=== PATIENT | female | born 1995 | race Caucasian/White ===

== ENCOUNTER 2023-09-13 10:26 | Inpatient (IN) | payer MEDICAID, SELFPAY ==
[2023-09-13] VITALS (30 sets, daily range): BP systolic 101–135; BP diastolic 55–85; PULSE 70–87; RESP 16–22; TEMP 36.6–37.2; O2SAT 98–100; BMI 31.5
[2023-09-13] MEDS: LACTATED RINGERS 1000 ML 1,000 ML IV (10:50)
[2023-09-13 10:57] LABS: Basophils Absolute Auto 0.01 K/uL (0.00-0.30); Basophils Percent Auto 0.1 % (0.0-3.0); Eosinophils Absolute Auto 0.04 K/uL (0.00-0.50); Eosinophils Percent Auto 0.5 % (0.0-7.0); Hematocrit 37.6 % (33.0-51.0); Hemoglobin* 12.8 gm/dL (12.0-16.0); Immature Granulocytes Abs Auto 0.09 K/uL (0.00-0.30); Immature Granulocytes Pct Auto 1.2 %; Lymphocytes Percent Auto 14.6 % (20-44); Mean Corpuscular HGB Conc 34 gm/dL (32-36); Mean Corpuscular Hemoglobin 33 pg (26-34); Mean Corpuscular Volume 97 fL (80-100); Monocytes Percent Auto 6.2 % (0.0-11.0); Neutrophils Percent Auto 77.4 % (42.0-72.0); Platelet Count* 224 K/uL (140-440); RDW Coefficient of Variation % 13.1 % (11.5-15.5); Red Blood Count 3.89 m/uL (4.00-5.20); White Blood Count* 7.73 K/uL (4.50-11.00)
[2023-09-13 11:00] LABS: Slide Review Reflex No
--- NOTE | 2023-09-13 12:40 | P.LDBA_ITS ---
Subjective History of Present Illness Date Seen: 09/13/23 Narrative: Patient is being admitted to Labor and Delivery for repeat delivery, she is an [facility] patient. She is a 28 year old at 39 1/7 weeks gestation. Her full history and physical was dictated by on []. Please see this for details. Comments: care labs: 1st trimester labs performed February 2023: Blood type and group O positive, antibody screen negative, hemoglobin 14.5, platelets [id number], rubella immune, RPR nonreactive, hepatitis-B surface antigen nonreactive, HIV nonreactive, gonorrhea chlamydia testing negative, hepatitis-C nonreactive. Cell free DNA testing: Low risk and female. Twenty week labs: 06/27/2023: Hemoglobin 12.1, 1 hour GTT 122 Ultrasounds: 05/08/2023: Anterior placenta, not previa, single deepest pocket of amniotic fluid 4.7 cm. Cervix is closed and measures 4.5 cm. Average gestational age 21 weeks 0 days with GABE: 09/18/2023. EFW: 390 g which lies at the 51st percentile. Incomplete visualization of the cord insertion site, otherwise normal anatomy. 06/21/2023: EFW: 74th percentile. Normal cord insertion. First-trimester ultrasound not available for my review at the time of this a ppointment: On 03/05/2023, primary care provider message patient that her ultrasound results were normal in gestational age of lines with her LMP. 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 Past medical history: History of hepatitis a, migraines, IBS? UTI Up-to-date with vaccines. 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 Repeat low transverse section, with Pfannenstiel skin incision. 2. [facility] does NOT accept blood transfusions, normal starting hemoglobin and platelets. Will give TXA after cord clamp. OB Result Labs Labs: 09/13/23 HGB: 12.8 PLT: 224 OB Exam Physical Exam Vital signs: Temp Pulse BP Pulse Ox 98 F 82 117/66 98 09/13/23 10:45 09/13/23 10:38 09/13/23 10:38 09/13/23 11:08 Detailed Labor and Delivery Exam Patient Gravid: Yes Tachysystole: No Contraction intensity: Mild Fetus (Single) Heart Rate Baseline: 120 Monitor Accelerations: Present Monitor Decelerations: None Snf Variability: Moderate (6-25)
[2023-09-13] MEDS: CEFAZOLIN 2 GM INJ IVP (12:50)
[2023-09-13] MEDS: LACTATED RINGERS 1000 ML 1,000 ML 100 ML IV ×2 (12:55→13:40)
[2023-09-13] MEDS: TRANEXAMIC ACID 100 MG/ML INJ 1000 MG IV (13:05)
[2023-09-13] MEDS: miSOPROStoL 800 MCG/4 TABLET PR (13:31)
--- NOTE | 2023-09-13 14:30 | W.ANESCHARGE ---
Anesthesia Charges Start Date/Time Anesthesia Start Date: 09/13/23 Anesthesia Start Time: 12:38 Stop Date/Time Anesthesia Stop Date: 09/13/23 Anesthesia Stop Time: 14:27
--- NOTE | 2023-09-13 14:35 | W.PM.NB ---
Nerve Block Nerve Block Time Seen by Provider: 14:15 Date Seen: 09/13/23 Type of block requested by surgeon for post-operative analgesia: TAP Side: bilateral Time out performed: Yes Verification of patient name: Yes Verification of date of : Yes Site marking: site marked Name of person performing procedure: Scotty Continuous monitoring Was continuous monitoring of O2 sat, B/P, secured entrance monitor, recorded every 15 minutes?: Yes Procedure Checklist: sterile prep, needles and gloves Ultrasound guided. Images saved: Yes Medications given in 5ml increments after negative aspiration: Marcaine %: 0.25 mL: 30 Needle gauge: 20 and Exparel mL: 10 Patient tolerated procedure well: Yes Additional comments: Needle noted between internal oblique and transversus abdominus. Local spread visualized Block Charges Block Charge (with Pro Fee): TAP Bilateral Use of Ultrasound Machine for Block: Yes- US Guidance/pain block
--- NOTE | 2023-09-13 14:35 | W.ANESCHARGE ---
Anesthesia Charges Start Date/Time Anesthesia Start Date: 09/13/23 Anesthesia Start Time: 12:38 Stop Date/Time Anesthesia Stop Date: 09/13/23 Anesthesia Stop Time: 14:27
--- NOTE | 2023-09-13 15:11 | P.OBPRC_ITS ---
Procedure Date of procedure: 09/13/23 Pre-op diagnosis: Previous section x1 desiring repeat Post-op diagnosis: same Procedure Done: only Will [facility] bill your pro fee for this procedure?: Yes Blood Loss Measurement Type: QBL (679mL) Bakri Used: No IV fluids (mL): 1,000 Urine Output (mL): 300 Urine Output Comment: Clear at end of procedure Surgeon: Zaira Mahan MD Anesthesia Type: Spinal Findings: FINDINGS: Live-born female , Vertex ROT presentation, Apgars 8 and 9 at 1 and 5 minutes respectively. weight 7 lb 14 oz. Grossly normal bilateral fallopian tubes and ovaries. Very thin lower uterine segment. I would recommend repeat section in the future at 38 weeks. Hysterotomy extension to the left corner of incision, anterior leave of the broad ligament. Posterior leave of broad ligament intact. Procedure Name: Repeat low transverse section Procedure Description: PROCEDURE: After obtaining informed consent, the patient was taken to the operating room where spinal anesthesia was obtained and found to be adequate. She was prepared and draped in the normal sterile fashion in the dorsal supine position with a leftward tilt. A Pfannenstiel skin incision was made with a scalpel about 2 cm above symphysis pubic bone, 12-14 cm in length. This incision was carried down to the underlying layer of fascia with the Bovie and scalpel. The fascia was incised in the midline and the incision extended laterally. The rectus muscles were then in the midline. The Jason O retractor was then placed into the incision. The lower uterine segment was then incised in a transverse fashion with the scalpel. Upon entry into the uterus, clear amniotic fluid was noted. The uterine incision was extended cephalo caudally with blunt finger fractionation. The 's head was delivered atraumatically, followed by the remainder of the 's body. The nose and mouth were suctioned with the bulb suction. The cord was doubly clamped and cut, and the infant was handed off the field to [facility] for evaluation. 1 gram of TXA was given at this time. The placenta was delivered spontaneously with umbilical cord traction and fundal massage. The uterus was cleared of all clots and debris. Bleeding left uterine clamped with ring forceps. Multiple figure of 8 taken with Vicryl 0 and hemostasis secured. The rest of the uterine incision was reapproximated in a running locking fashion with a 0 Vicryl suture. A 2nd layer of the same suture was used to imbricate in horizontal fashion. The left broad ligament extension was evaluated, there was mild bleeding noted coming from the vertex of hysterotomy and additional sutures of Chromic 2-0 performed to oversaw and support the previous line of sutures. At this time there was also a component of uterine atony identify and treated with 800mcg of rectal Cytotec, 1 dose of IM Methergine and Oxytocin 20 units were running as protocol. This did improved uterine tone and hemostasis was secured. The posterior leave of the broad ligament on this side was also treated with Katharine to further secure hemostasis. The gutters were inspected and cleared of blood clot. All instruments and retractors were removed. Peritoneum was re approximated with a running non locking Vicryl 3-0 suture. The subfascial tissues were carefully inspected and hemostasis assured. The fascia was reapproximated in a running fashion with a looped 0 Vicryl suture. The subcutaneous tissues were copiously irrigated, inspected and hemostasis secured. The subcutaneous fat layer was reapproximated with a running suture of 3-0 Vicryl. The skin was closed in a subcuticular fashion with 4-0 Monocryl. LiquiBand and dressing were applied. The patient tolerated the procedure well. Sponge, lap, needle, and instrument counts were reported as correct x2. The patient was taken to the recovery room, awake, and in stable condition. She did receive 2 grams of IV Ancef preoperatively. Complications: None Pathology: none sent Surgery Debrief Performed: Yes Condition: stable Disposition: floor Infant total score - 1 minute: 8 total score - 5 minute: 9
[2023-09-13] MEDS: LACTATED RINGERS 1000 ML 1,000 ML 125 ML IV (17:05)
[2023-09-13] MEDS: SODIUM CHLORIDE 0.9 % (FLUSH) 10 ML SYRINGE IVF ×2 (20:08→20:21)
[2023-09-13] MEDS: KETOROLAC 30 MG/ML inj IVP (20:09)
[2023-09-13] MEDS: diphenhydrAMINE 50 MG/ML inj 12.5 MG IVP ×2 (20:21→20:35)
[2023-09-14] VITALS (14 sets, daily range): BP systolic 105–114; BP diastolic 64–69; PULSE 70–98; RESP 16; TEMP 36.8–37.2; O2SAT 98
[2023-09-14] MEDS: KETOROLAC 30 MG/ML inj IVP ×4 (02:08→20:22)
[2023-09-14] MEDS: diphenhydrAMINE 50 MG/ML inj 12.5 MG IVP (02:17)
[2023-09-14 06:27] LABS: Hemoglobin* 11.8 gm/dL (12.0-16.0)
[2023-09-14] MEDS: FERROUS SULFATE 325 MG TABLET PO (08:12)
[2023-09-14] MEDS: DOCUSATE SODIUM 100 MG CAPSULE PO (08:12)
--- NOTE | 2023-09-14 08:19 | PM.OBPNVD1 ---
OB - PN:Subj Subjective Time Seen by Provider: 07:45 Date Seen: 09/14/23 Patient comments OB post-: no complaints, pain well controlled, tolerating diet and flatus present infant status: and doing well [place] feeding status: exclusively Narrative: Letitia feels well.? Her pain is well controlled with current medications.? She has no new complaints.? Urinary output is adequate and she is voiding without difficulty.? Has a good appetite, is tolerating a general diet, is passing flatus, and has not had a bowel movement.? Has scant amount of rubra lochia.? She is ambulating well.?She had questions about . OB - PN: Obj Exam Physical Exam: Vital signs: Temp Pulse Resp BP Pulse Ox O2 Del Method 98.3 F 70 16 105/66 98 Room Air 09/14/23 08:02 09/14/23 08:02 09/14/23 08:02 09/14/23 08:02 09/14/23 08:02 09/14/23 08:02 Narrative: GENERAL APPEARANCE:? normal affect, alert, no distress? MOOD:? appropriate? CHEST:? clear to auscultation and percussion? HEART:? regular rate and rhythm? ABDOMEN:? soft, non-tender the uterine fundus is U/2 and is appropriate for the stage of recovery.?Dressing in clean, dry and intact. EXTREMITIES:? normal and no edema? Urinary Catheter Management: Urethral: Cath placed during this visit: yes, but has since been removed by the nurse Reason for continuing: surgical procedure Insertion date: 09/13/23 Insertion time: 12:48 Removal date: 09/14/23 Removal time: 00:45 OB - PN: Obj Data Labs Labs: Laboratory Results - last 24 hr 09/13/23 09/14/23 10:47 06:10 WBC 7.73 RBC 3.89 L Hgb 12.8 11.8 L Hct 37.6 MCV 97 MCH 33 MCHC 34 RDW Coeff of Daniella 13.1 Plt Count 224 Neut % (Auto) 77.4 H Lymph % (Auto) 14.6 L Stafford % (Auto) 6.2 Eos % (Auto) 0.5 Baso % (Auto) 0.1 Neut # (Auto) 6.00 Lymph # (Auto) 1.10 Stafford # (Auto) 0.50 Eos # (Auto) 0.04 Baso # (Auto) 0.01 Abs Immat Gran (auto) 0.09 Imm/Tot Granulo (auto) 1.2 Blood Type O Positive Antibody Screen NEGATIVE OB - PN: A/P Delivery Plan day: 1 Plan: routine care Comments: Anticipate discharge home tomorrow or the following day per patient preference.
[2023-09-14] MEDS: OXYCODONE 5 MG TABLET PO (11:48)
[2023-09-14] MEDS: ACETAMINOPHEN 500 MG TABLET 1000 MG PO (11:49)
[2023-09-15 01:15] VITALS: BP 113/70; PULSE 82; RESP 16; TEMP 36.7; O2SAT 98
[2023-09-15] MEDS: IBUPROFEN 600 MG TABLET PO ×2 (04:55→14:23)
--- NOTE | 2023-09-15 09:29 | P.OBPN_ITS ---
OB - PN:Subj Subjective Time Seen by Provider: 09:25 Date Seen: 09/15/23 Narrative: Ms. Wilkins is a 28yo seen on POD2 from repeat . She had an uncomplicated delivery and course to present. 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 Letitia is feeling well today with no acute concerns. She notes her pain control is overall good, but she certainly has more pain when she is up and moving. She notes analgesic medications are helping. She is tolerating a diet without nausea/vomiting. Ambulates without dizziness or lightheadedness. Passing gas, no bowel movement yet. Void spontaneously without difficulty. Lochia is minimal. She is breast and formula feeding baby successfully. Given her ongoing pain, she would desire another night in the hospital. OB - PN: Obj Exam Physical Exam: Vital signs: Temp Pulse Resp BP Pulse Ox O2 Del Method 98.0 F 82 16 113/70 98 Room Air 09/15/23 01:15 09/15/23 01:15 09/15/23 01:15 09/15/23 01:15 09/15/23 01:15 09/15/23 01:15 Narrative: General: Alert and oriented, in no acute distress Abdomen: Soft and nondistended. Tenderness to palpation in the low abdomen, consistent with postoperative state. No rebound or guarding. Incision is intact and well approximated, no erythema or drainage. Extremities: No edema, calf erythema or tenderness. Urinary Catheter Management: Urethral: Cath placed during this visit: yes, but has since been removed by the nurse Reason for continuing: not indwelling catheter Insertion date: 09/13/23 Insertion time: 12:48 Removal date: 09/14/23 Removal time: 00:45 OB - PN: A/P Delivery Assessment and Plan (1) delivery delivered: Status: Acute (2) Encounter for care of lactating mother: Status: Acute Plan Letitia is a 28-year-old seen on postop day 2 from a repeat d brooke. Her postoperative course has been unremarkable. She does note some ongoing pain, greatest when she is ambulating or breast-feeding baby. We discussed analgesic regimen, which does provide significant improvement. Encouraged abdominal support band for pain with movement. Vital signs are within normal limits, benign abdominal exam. Medically, she is meeting all post appropriate postoperative milestones but she is certainly entitled to another other night in the hospital. Her preference would be to stay given ongoing pain and support here. Disposition: discharge to home tomorrow Plan day: 2 Plan: routine care
[2023-09-15 09:40] VITALS: BP 110/71; PULSE 78; RESP 16; TEMP 36.6; O2SAT 97
[2023-09-15] MEDS: DOCUSATE SODIUM 100 MG CAPSULE PO (09:43)
[2023-09-15] MEDS: FERROUS SULFATE 325 MG TABLET PO (09:43)
[2023-09-15] MEDS: ACETAMINOPHEN 500 MG TABLET 1000 MG PO ×2 (09:53→22:25)
[2023-09-15] MEDS: OXYCODONE 5 MG TABLET PO (09:53)
[2023-09-15 16:30] VITALS: BP 104/86; PULSE 85; RESP 12; O2SAT 98
[2023-09-16 00:34] VITALS: BP 115/73; PULSE 70; RESP 16; TEMP 36.6; O2SAT 98
--- NOTE | 2023-09-16 06:56 | PM.OBDSVD1 ---
DS: Providers Provider Time Seen by Provider: 06:56 Date Seen: 09/16/23 Date of admission: 09/13/23 10:26 Primary care physician: Meera Candelario DO Admitting Clinician: Melia Mahan MD Attending Physician on discharge: Jorge Luis Preciado MD Exam Narrative: Exam Narrative: General: Alert and oriented, in no acute distress Abdomen: Soft and nondistended. No tenderness to the upper abdomen, mild tenderness across the low abdomen consistent with postop state. No rebound or guarding. Incision is well approximated, no erythema, drainage or ecchymosis. Extremities: No calf edema, erythema or tenderness Const: Vital Signs, click to edit/add: Vital Signs - 24 hr 09/15/23 09:40 09/15/23 16:30 09/16/23 00:34 Temperature 97.9 F 97.9 F Pulse Rate [Pulse Oximeter] 78 85 70 Respiratory Rate 16 12 16 Blood Pressure [Ri ght Arm] 110/71 104/86 115/73 Pulse Oximetry 97 98 98 Oxygen Delivery Me thod Room Air Room Air Room Air OB - DS: Summary Hospital Course Hospital Course: The patient is a 28 year old G 2 P 2 at 39 weeks gestation that was admitted to the Center on 09/13/23 for scheduled repeat . She had an uncomplicated delivery. She delivered a viable female . She is breast and bottle feeding. the patient has done well. Letitia is feeling well this morning, no acute concerns. She notes her pain is well controlled, only exacerbated with movement at the area of her incision. She is tolerating p.o. intake without nausea or vomiting. Ambulates without difficulty. Voiding spontaneously, passing flatus, no bowel movement yet. Lochia is minimal. No lower extremity edema, erythema or pain. Peripartum Data Procedures: Procedures Operation Date: 09/13/23 12:45 Actual Procedure Side Surgeon p Repeat low transverse Section Not Applicable Melia Mahan MD [place] Infant Gender: Female Time Spent with Patient Time attestation: Total time spent providing and/or coordinating discharge services: Time spent: Less than 30 minutes Discharge Plan Discharge Disposition: Home, Self-Care Date of Admission: 09/13/23 10:26 Attending Provider on Discharge: Tamera Preciado Primary Care Provider: Meera Candelario Condition: Stable Anticipated Discharge Date/Time: 09/16/23 06:59 Discharge Medications: Continued PNV #[id number] acid-[id number] 30 mg iron-10 mg iron-1 mg capsule 1 cap PO DAILY Discharge Orders: Discharge Order (Routine); Ordered 09/16/23 Ordered By: Tamera Preciado Patient Education: OB /Breast Feeding Activity Level: No strenuous activity Discharge Diet: Regular Follow Up Appointments: Meera Candelario DO [Primary Care Provider] - Forms: [facility] Info Instructions
[2023-09-16 07:41] VITALS: BP 118/76; PULSE 74; RESP 16; TEMP 37; O2SAT 97
[2023-09-16] MEDS: IBUPROFEN 600 MG TABLET PO (07:57)
[2023-09-16] MEDS: DOCUSATE SODIUM 100 MG CAPSULE PO (07:57)
[2023-09-16] MEDS: FERROUS SULFATE 325 MG TABLET PO (07:57)
[2023-09-16] MEDS: ACETAMINOPHEN 500 MG TABLET 1000 MG PO (12:52)
== END 2023-09-16 13:58 | disposition home or self-care (01) | DRG 788 ==
PROVIDERS: Admitting Provider Obstetrics & Gynecology; PCP Family Medicine; Visit Provider Obstetrics & Gynecology
PROC: 10D00Z1 Extraction of Products of Conception, Low, Open Approach (ICD-10-PCS; CPT 59514; principal; 2023-09-13 12:30)
DX: O34.211 Maternal care for low transverse scar from previous cesarean delivery (principal); Z3A.39 39 weeks gestation of pregnancy; Z37.0 Single live birth; G89.18 Other acute postprocedural pain
CPT/HCPCS: 01961; 36415; 64488; 76942; 85018; 85025; 86850; 86900; 86901; T1013; A9270; C9290; J0665; J0690; J1200; J1885; J2210; J2274; J2405; J2590; J7120

== ENCOUNTER 2023-10-25 14:08 | Outpatient (CLI) | payer MEDICAID, SELFPAY | END 2023-10-25 14:09 | disposition home or self-care (01) | LOC: NFLDREF 14:09 | PROVIDERS: PCP Family Medicine; Visit Provider Obstetrics & Gynecology | DX: N89.8 Other specified noninflammatory disorders of vagina (principal); R30.0 Dysuria | CPT/HCPCS: 87086; 87186 ==

== ENCOUNTER 2024-01-16 19:41 | Emergency (ER) | payer MEDICAID, SELFPAY ==
--- NOTE | 2024-01-16 20:08 | ED_ITS ---
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 She says sometimes when she touches her left ear there has been some watery drainage. She has not had a fever. Her infant daughter has developed some the same symptoms over the past couple of days. She is breast-feeding. General health is good, she denies asthma, does not smoke. Related Data Home Medications ?Medication ?Instructions ?Recorded ?Confirmed vitamin#30 30 mg iron-10 1 cap PO DAILY 07/03/23 10/25/23 mg iron-folic acid 1 mg-omg3 capsule Previous Rx's ?Medication ?Instructions ?Recorded rfideqvx-binric-OL-thonzonm 3.3 1 applic Otic (ear-left) Q4H #10 mL 01/16/24 mg-3 mg-10 mg-0.5 mg/mL ear drops,susp (Cortisporin-TC) Allergies Allergy/AdvReac Type Severity Reaction Status Date / Time No Known Drug Allergies Allergy Verified 10/25/23 14:07 Review of Systems Status of ROS: Reports: 6 or more systems reviewed and unremarkable except as noted in History and below [facility] Medical History (Updated 01/16/24 @ 21:09 by Jared Myles RN) No significant past medical history Surgical History (Updated 01/16/24 @ 21:09 by Jared Myles RN) No significant past surgical history Social History What is your current living situation?: I presently have a place to live Problems where you live: no known problems In the past 12 months, utilities in danger of being shut off: no In past 12 months, lack of transportation kept you from medical appts, meetings, work, or getting things needed for daily living: no In the past 12 mos, have been you worried that your food would run out before you had money to buy more?: never true In the past 12 mos, the food you bought just didn't last and you didn't have money to buy more?: never true Smoking Status: Never smoker Second hand tobacco smoke exposure: No How often do you have a drink containing alcohol: never AUDIT-C Alcohol total score: 0 Non-prescribed substance use: denies use How often does anyone, including family, friends and others, physically hurt you : never How often does anyone, including family, friends and others, insult or talk down to you: never How often does anyone, including family, friends and others, threaten you with harm: never How often does anyone, including family, friends and others, scream or curse at you: never Little interest or pleasure in doing things: not at all Feeling down, depressed, or hopeless: not at all Exam Narrative: Exam Narrative: Vital signs as noted above. In general, an alert, well-appearing patient. Voice is normal. Head: Normocephalic, atraumatic. Eyes: Pupils are equal reactive. Extraocular movements are full. Conjunctivae are normal. ENT: Mucous membranes are moist. Tonsils are a little erythematous but no edema or exudate. No evidence of abscess. She has some mild redness of the external auditory canal on the left but there is no edema and I do not see any drainage at this time. TMs are normal bilaterally. Neck: Supple without lymphadenopathy. Heart: Regular rate and rhythm. No murmur or rub. Lungs: Clear bilaterally. No increased work of breathing, crackles or wheezes. Extremities: Well perfused. No edema. No calf tenderness. Pulses intact. Neurologic: Patient is alert and oriented to person and place. Speech is fluent. Face is symmetric. Moves all extremities equally. Affect: Normal. Skin: Warm and dry. Well perfused. Const: Documenting provider has reviewed patient's vital signs: yes Course Course ED Course: Overall exam is pretty benign. She does have a little erythema in the left ear canal and I can certainly put her on some ear drops for that. No evidence of otitis media, pneumonia, peritonsillar abscess or other acute bacterial infection at this time. Will do a viral swab to evaluate for possible COVID, RSV, influenza. Supportive care with ibuprofen and/or Tylenol. Viral swab is negative. I did give her some Cortisporin ear drops for may be mild developing otitis externa. Otherwise, return for worsening, primary care follow-up if not improving over the next 7-10 days. Vital Signs Vital signs: Initial Vital Signs Respiratory Effort Normal, Spontaneous, Non-Labored 01/16/24 20:05 Respiratory Depth Normal 01/16/24 20:05 Respiratory Pattern Normal 01/16/24 20:05 Vital Signs Temperature 97.6 F 01/16/24 20:09 Pulse Rate 92 01/16/24 20:09 Respiratory Rate 16 01/16/24 20:09 Blood Pressure 116/70 01/16/24 20:09 Pulse Oximetry 98 01/16/24 20:09 Oxygen Delivery Method Room Air 01/16/24 20:09 Temperature 98.0 F 01/16/24 21:11 Pulse Rate 84 01/16/24 21:11 Respiratory Rate 16 01/16/24 21:11 Blood Pressure 121/71 01/16/24 21:11 Pulse Oximetry 98 01/16/24 21:10 Oxygen Delivery Method Room Air 01/16/24 21:10 Medical Decision Making Lab Data Labs: Lab Results 01/16/24 Range/Units 19:50 SARS-CoV-2 (PCR) Negative SARS-CoV-2 (Negative) Influenza Type A (PCR) Negative PCR FLU A (Negative) Influenza Type B (PCR) Negative PCR FLU B (Negative) RSV (PCR) Negative PCR RSV (Negative) Discharge Plan Discharge Clinical Impression: Viral illness, Otitis externa Patient Disposition: Home, Self-Care Condition: Stable Instructions: Swimmer's Ear (ED), Viral Syndrome (ED) Additional Instructions: Ear drops as prescribed. Ibuprofen and/or Tylenol as needed. See your primary doctor if not gradually improving over the next 7-10 days. Return to the emergency department at any time for acute worsening such as high fevers, diffi culty breathing, etc.. Prescriptions: New Cortisporin-TC 3.3-3-10-0.5 mg/mL drops,suspension 1 applic Otic (ear-left) Q4H Qty: 10 0RF Rx Instructions: apply to (cotton) wick; replace wick every 24 hours No Action PNV #[id number] acid-omega3 30 mg iron-10 mg iron-1 mg capsule 1 cap PO DAILY Follow Up/Referrals: Meera Candelario DO [Primary Care Provider] - Stand Alone Forms: [facility] Info Instructions
[2024-01-16 20:09] VITALS: BP 116/70; PULSE 92; RESP 16; TEMP 36.4; O2SAT 98
[2024-01-16 20:52] LABS: PCR FLU A Negative PCR FLU A (Negative); PCR FLU B Negative PCR FLU B (Negative); PCR RSV Negative PCR RSV (Negative); SARS PCR* Negative SARS-CoV-2 (Negative)
[2024-01-16 21:10] VITALS: BP 121/71; PULSE 84; RESP 16; TEMP 36.7; O2SAT 98
[2024-01-16 21:11] VITALS: BP 121/71; PULSE 84; RESP 16; TEMP 36.7
== END 2024-01-16 21:11 | disposition home or self-care (01) ==
LOC: ED 20:28
PROVIDERS: Emergency Provider Emergency Medicine; PCP Family Medicine
DX: H60.92 Unspecified otitis externa, left ear (principal); B34.9 Viral infection, unspecified
CPT/HCPCS: 87631; 99283

== ENCOUNTER 2024-02-19 18:06 | Emergency (ER) | payer MEDICAID, SELFPAY ==
[2024-02-19 18:13] VITALS: BP 113/73; PULSE 81; RESP 16; TEMP 36.3; O2SAT 97; BMI 26.9
--- NOTE | 2024-02-19 18:32 | ED.GENADULT ---
HPI - General Adult General Chief complaint: Urogenital Problems, Female Stated complaint: Pain while urinating Time Seen by Provider: 02/19/24 18:26 History of Present Illness HPI narrative: 15 days ago wisdom teeth removed. now having blood with bm. c/o constipation. c/o back and abd pain. constantly urinating. kendall and hurts to urinate. drinking oat milk and stool softener but if stops burning sensation comes back. symptoms x 7 days 28-year-old woman presenting to emergency department with a few concerns. Two weeks ago did have her wisdom teeth removed in still having some pain but admittedly is controlled with ibuprofen. She has only taken ibuprofen. She does have what sounds like an opiate available from last but she has not taken it in this last couple of weeks. Has however become constipated. Has been having increasing hard stool last bowel movement being yesterday and the day before that. Has had blood with last couple of bowel movements. Does not hurt independent of these bowel movements. She wonders if there might be a cream that needs to be used. Does not typically struggle with constipation; last recalled was with last . Recalls taking what sounds like Colace at that time. She has also been experiencing dysuria. No unusual vaginal discharge. No fever. No hematuria. Has had some bilateral low back ache. Related Data Previous Rx's ?Medication ?Instructions ?Recorded lidocaine 4 % topical cream 1 applic topical TID PRN pain 02/19/24 #14.17 grams polyethylene glycol 3350 17 17 g PO .daily - tid PRN #238 grams 02/19/24 gram/dose oral powder (Miralax) sodium phosphates 19 gram-7 118 ml ID BID PRN constipation 02/19/24 gram/197 mL enema (Fleet Enema #230 mL Extra) Allergies Allergy/AdvReac Type Severity Reaction Status Date / Time No Known Drug Allergies Allergy Verified 10/25/23 14:07 Review of Systems Status of ROS: Reports: 6 or more systems reviewed and unremarkable except as noted in History and below [facility] Medical History No significant past medical history Surgical History (Updated 01/16/24 @ 21:09 by Jared Myles RN) No significant past surgical history Social History What is your current living situation?: I presently have a place to live Problems where you live: no known problems In the past 12 months, utilities in danger of being shut off: no In past 12 months, lack of transportation kept you from medical appts, meetings, work, or getting things needed for daily living: no In the past 12 mos, have been you worried that your food would run out before you had money to buy more?: never true In the past 12 mos, the food you bought just didn't last and you didn't have money to buy more?: never true Smoking Status: Never smoker Second hand tobacco smoke exposure: No How often do you have a drink containing alcohol: never AUDIT-C Alcohol total score: 0 Non-prescribed substance use: denies use How often does anyone, including family, friends and others, physically hurt you: never How often does anyone, including family, friends and others, insult or talk down to you: never How often does anyone, including family, friends and others, threaten you with harm: never How often does anyone, including family, friends and others, scream or curse at you: never Little interest or pleasure in doing things: not at all Feeling down, depressed, or hopeless: not at all Exam Narrative: Exam Narrative: Very pleasant. NAD. Oropharynx with well healing wisdom teeth extraction x4. Little deeper depression in the right lower jaw. Admittedly this is where she has more discomfort. No external swelling sore internal swelling is appreciated. Abdomen is soft and intermittently little uncomfortable to palpation the periumbilical area but otherwise no tenderness. No flank pain. Did not do anal exam. Const: Vital Signs, click to edit/add: Vital Signs - 24 hr 02/19/24 18:13 Temperature 97.3 F L Pulse Rate [Pulse Oximeter] 81 Respiratory Rate 16 Blood Pressure [Ri ght Upper Arm] 113/73 Pulse Oximetry 97 Oxygen Delivery Me thod Room Air Documenting provider has reviewed patient's vital signs: yes Course Vital Signs Vital signs: Initial Vital Signs Temperature 97.3 F L 02/19/24 18:13 Temperature Source Temporal Artery Scan 02/19/24 18:13 Pulse Rate 81 02/19/24 18:13 Respiratory Rate 16 02/19/24 18:13 Blood Pressure 113/73 02/19/24 18:13 Blood Pressure Mean 86 02/19/24 18:13 Blood Pressure Position Sitting 02/19/24 18:13 Pulse Oximetry 97 02/19/24 18:13 Oxygen Delivery Method Room Air 02/19/24 18:13 Vital Signs Temperature 97.3 F L 02/19/24 18:13 Pulse Rate 81 02/19/24 18:13 Respiratory Rate 16 02/19/24 18:13 Blood Pressure 113/73 02/19/24 18:13 Pulse Oximetry 97 02/19/24 18:13 Oxygen Delivery Method Room Air 02/19/24 18:13 Temperature 97.3 F L 02/19/24 18:13 Pulse Rate 81 02/19/24 18:13 Respiratory Rate 16 02/19/24 18:13 Blood Pressure 113/73 02/19/24 18:13 Pulse Oximetry 97 02/19/24 18:13 Oxygen Delivery Method Room Air 02/19/24 18:13 Medical Decision Making MDM Narrative Medical decision making narrative: Absent other abdominal pain or maybe diarrhea this really would seem to be rectal passage bleeding. Since is not having a lot of pain independent of the bowel movement and has not noticed swellings, I would suspect more of a fissure. Does not appear to need any intervention for these wisdom teeth. Pending urinalysis would potentially treat for cystitis. Will offer treatment for constipation Urinalysis looks positive and with symptoms I think treatable. See patient discharge plan for further discussion Medical Records Medical records reviewed: Yes I reviewed the patient's medical records Lab Data Lab results reviewed: Yes I reviewed the patient's lab results Labs: Lab Results 02/19/24 Range/Units 18:40 Urine Color Yellow (Yellow) Urine Appearance Cloudy A (Clear) Urine pH 6.0 (5.0-8.5) Ur Specific Jewett 1.025 (1.000-1.030) Urine Protein Negative (Negative) Urine Glucose (UA) Negative (Negative) Urine Ketones Negative (Negative) Urine Blood Trace-intact A (Negative) Urine Nitrite Negative (Negative) Urine Bilirubin Negative (Negative) Urine Urobilinogen 0.2 (0.2-1.0) Ur Leukocyte Esterase 1+ A (Negative) Urine RBC 2-5 A (0-2) Urine WBC 5-10 A (0-5) Ur Squamous Epith Cells Few (None-Few) Urine Bacteria Few A (None) Discharge Plan Discharge Clinical Impression: Cystitis, Constipation, PRB (rectal bleeding) Patient Disposition: Home, Self-Care Condition: Stable Additional Instructions: Your symptoms with urination along with findings in the lab would suggest that you have a urinary tract infection. Prescribing cephalexin from [facility]. Urine culture will be pending here and we will call you if you might need to change antibiotics. The bleeding with bowel movements I think is probably related to an anal fissure/cut caused or exacerbated by constipation. I think if you treat the constipation for a longer period of time, the bleeding will likely resolve. If it does not, then I would follow up for re-evaluation. While you can purchase all treatments [id number] I am sending in polyethylene glycol powder that you can mix in liquid 1-3 times daily over the next couple of weeks and adjust stool consistency. Also sending in prescription for enema that you can use if bowel movements are just too hard. Can repeat in an hour if no good result. And then otherwise for discomfort, and anesthetic cream containing lidocaine. And generally it is important to stay well-hydrated. Be seen otherwise for marked increase in abdominal pain, fever, significant increase in bleeding. Isabella s?ntomas al orinar, junto con los resultados del laboratorio, sugerir?an que tiene janice infecci?n del tracto urinario. Le recetaremos cefalexina de [facility]. El cultivo de orina estar? pendiente aqu? y lo llamaremos si necesita cambiar los antibi?ticos. Creo que el sangrado con las deposiciones probablemente est? relacionado con janice fisura o julito anal causado o exacerbado por el estre?imiento. Creo que si trata el estre?imiento devyn un per?odo m?s prolongado, es probable que el sangrado se resuelva. Si no es as?, entonces le pedir?a que lo reeval?e. Si gonzalo puede comprar todos los tratamientos sin receta, le enviar? un polvo de polietilenglicol que puede mezclar en l?quido de 1 a 3 veces al d?a devyn las pr?ximas semanas y ajustar la consistencia de las heces. Tambi?n le enviar? janice receta para un enema que puede usar si las deposiciones son demasiado duras. Puede repetirlo en janice hora si no hay un buen resultado. Y luego, para las molestias, janice crema anest?florin que contenga lidoca?na. Y, en general, es importante mantenerse gonzalo hidratado. De lo contrario, debe considerarse un aumento marcado del dolor abdominal, fiebre y un aumento significativo del sangrado. Prescriptions: New polyethylene glycol 3350 [Miralax] 17 gram/dose powder 17 g PO .daily - tid PRNQty: 238 0RF lidocaine 4 % cream 1 applic topical TID PRN (Reason: pain) Qty: 14.17 0RF Fleet Enema Extra 19-7 gram/197 mL enema 118 ml ID BID PRN (Reason: constipation) Qty: 230 0RF Follow Up/Referrals: Meera Candelario DO [Primary Care Provider] - Stand Alone Forms: MyHealth Info Instructions
[2024-02-19 18:48] LABS: Appearance Urine Cloudy (Clear); Bilirubin Urine Negative (Negative); Blood Urine Trace-intact (Negative); Color Urine Yellow (Yellow); Glucose Urine Negative (Negative); Ketones Urine Negative (Negative); Leukocyte Esterase Urine 1+ (Negative); Nitrite Urine Negative (Negative); Protein Urine Negative (Negative); Specific Gravity Urine 1.025 (1.000-1.030); Urobilinogen Urine 0.2 (0.2-1.0)
[2024-02-19 19:12] LABS: Bacteria Urine Few; Squamous Epithelial Cell Urine Few (None-Few)
== END 2024-02-19 20:12 | disposition home or self-care (01) ==
PROVIDERS: Emergency Provider Family Medicine; PCP Family Medicine
DX: N30.90 Cystitis, unspecified without hematuria (principal); K59.00 Constipation, unspecified; K62.5 Hemorrhage of anus and rectum
CPT/HCPCS: 81001; 87086; 87186; 99283; 99284

== ENCOUNTER 2025-01-08 11:42 | Emergency (ER) | payer MEDICAID, SELFPAY ==
--- OUTSIDE RECORDS SUMMARY | 2025-01-08 11:43 | XMS_ITS | Clinical Summary ---
Author Organization [facility] Address [address] [place] [id number] Care Team Providers Care Adjunct Faculty Name Role Phone Pcp, No Primary Care Provider Unavailabl e Allergies No known active allergies Medications PNV 119-iron fum-folic acid ( 19) 29 mg iron- 1 mg tabIndications: care in third trimester (HC) Take by mouth. 1 oral daily 90 Tablet 3 08/20/2023 Active docusate (COLACE) 100 mg capsuleIndicati ons:H/O section Take 1 Capsule (100 mg) by mouth 2 times daily if needed for Constipation . 30 Capsule 09/18/2023 Active Active Problems Problem Noted Date Diagnosed Date Refusal of blood transfusion s as patient is Christianity 08/27/2023 02/19/2023 Overview (08/27/2023): Estimated Date of Delivery: 09/19/23 Patient's last menstrual period was 12/13/2022 (exact date). [facility] [facility] does NOT want ANY BLOOD PRODUCTS. Had TOLAC visit with [facility] 07/03/23. Given consent then but did not sign and was to review at home and bring to . Brought back 08/06/23 and faxed to [facility]. She wants to schedule c/s at 39wks and TOLAC if goes into labor prior to this. She is aware if attempting tolac we recommend this at larger hospital due to increased risks bleeding/emergent c/s and no option blood products. GBS- Vaginal/Rectal OB Strep B PCR Date Value Ref Range Status 08/20/2023 Negative Final 28w labs- GLUCOSE,GESTATIONAL Date Value Ref Range Status 06/27/2023 122 70 - 139 mg/dL Final HEMOGLOBIN Date Value Ref Range Status 06/27/2023 12.1 12.0 - 16.0 g/dL Final TREPONEMA PALLIDUM Date Value Ref Range Status 06/27/2023 Non-Reactive Non-Reactive Final Last Tdap- 06/25/23 Last Flu vaccine- 04/23/23 OB Labs: ABORH Date Value Ref Range Status 02/19/2023 O Rh Positive Final ANTIBODY SCREEN Date Value Ref Range Status 02/19/2023 Negative Negative Final TREPONEMA PALLIDUM Date Value Ref Range Status 06/27/2023 Non-Reactive Non-Reactive Final RUBELLA IGG ANTIBODY Date Value Ref Range Status 02/19/2023 9.24 >=1.00 Index Final INTERPRETATION Date Value Ref Range Status 02/19/2023 Positive Final Comment: Presence of detectable IgG antibodies. A positive result generally indicates exposure to the virus or previous vaccination, but is not an indication of active infection or stage of disease. HBSAG Date Value Ref Range Status 02/19/2023 Nonreactive Nonreactive Final HEPATITIS C ANTIBODY Date Value Ref Range Status 02/19/2023 Non-Reactive Non-Reactive Final Comment: Please note, per www.CDC.gov: If a patient is known to be at high risk of HCV infection, or is symptomatic, and the physician's suspicion of HCV infection is high, HCV RNA testing is often employed and is of diagnostic value, even after an initial negative anti-HCV test result. HIV-1/HIV-2 SCREEN Date Value Ref Range Status 02/19/2023 Non-Reactive Non-Reactive Final Comment: HIV-1 p24 and HIV-1/HIV-2 Ab Not Detected. HEMOGLOBIN Date Value Ref Range Status 06/27/2023 12.1 12.0 - 16.0 g/dL Final PLATELET COUNT Date Value Ref Range Status 02/19/2023 325 140 - 440 thou/cu mm Final CHLAMYDIA PROBE Date Value Ref Range Status 02/19/2023 Negative Final N GONORRHOEAE PROBE Date Value Ref Range Status 02/19/2023 Negative Final OB History Para Term AB Living 2 1 1 0 0 1 SAB IAB Ectopic Multiple Live Births 0 0 0 0 1 # Outcome Date GA Lbr Alfredo/2nd Weight Sex Delivery Anes PTL Lv 2 Current 1 Term 06/07/14 HIRAL Name: Leroy Past Medical History: . Date Migraine headache Varicella In childhood Past Surgical History: . Laterality Date SECTION 06/07/2014 Problems (from 02/19/23 to present) No problems associated with this episode. CHEYENNE SEARS RN ....02/19/2023 3:49 PM Immunizations Immunization Administration Dates Next Due Influenza, IIV4 04/23/2023 Tdap 06/25/2023 Social History Tobacco Use Types Packs/Day Years Used Date Smoking Tobacco: Never Smokeless Tobacco: Never Tobacco Cessation:Counseling Given: Not Answered Alcohol Use Standard Drinks/Week Comments Not Currently 0 (1 standard drink = 0.6 oz pur e alcohol) PHQ-2 Answer Date Recorded PHQ-2 TOTAL SCORE 3 03/27/2023 Social Connections Answer Date Recorded Frequency of Communication with Friends and Fami ly 0 02/28/2023 Financial Resource Strain Answer Date R ecorded Difficulty of Paying Living Expenses 1 02/28/2023 Difficulty of Paying Living Expenses 2 02/28/2023 Food Insecurity Answer Date Recorded Worried About Running Out of Food in the Last Ye ar 1 02/28/2023 Transportation Needs Answer Date Record ed Lack of Transportation (Medical) 2 02/28/2023 Housing Stability Answer Date Recorded Unable to Pay for Housing in the Last Year 3 02/28/2023 Comments No Sex and Gender Information Value Date Recorded Sex Assigned at Not on file Legal Sex Female 3:38 PM CDT Gender Identity Not on file Sexual Orientation Not on file Obstetrics History Para Term AB IAB SAB Ectopic Multiple Livin g Live Births 2 1 1 1 1 Date Outcome GA Total Labor Labor/2nd/3rd Weight Sex Type Anes PTL Hiral A1 A5 Name Clin 06/07 Term C-Sec tion Living Leroy Last Filed Vital Signs Vital Sign Reading Time Taken Comments Blood Pressure 106/68 09/10/2023 1:37 PM CDT Pulse 75 09/10/2023 1:37 PM CDT Temperature 36.8 C (98.3 F) 07/09/2023 1:51 PM [employer] Respiratory Rate - - Oxygen Saturation 97% 09/10/2023 1:37 PM CDT Inhaled Oxygen Concentration - - Weight 74.8 kg (165 lb) 09/10/2023 1:37 PM CDT Height 154.4 cm (5' 0.79) 02/19/2023 3:47 PM CD T Body Mass Index 31.4 02/19/2023 3:47 PM CDT Plan of Treatment Health Maintenance Due Date Last Done Comments Hepatitis B series for 19+ ( 1 of 3 - 19+ 3-dose series) 2014 COVID-19 vaccine series ( - 2023- season) 2024 BMI (ht and wt on same day) for age 18+ 02/20/2024 02/19/2023 Depression screening for age 12+ 03/26/2024 03/26/2023 Influenza Vaccine (#1) 2025 04/23/2023 Pap test for age 21-65 10/24/2026 , 10/25/2023 Tetanus booster 06/25/2033 06/25/2023 HIV for age 15-65 Completed 02/19/2023 Hepatitis C screening for ag e 18-79 Completed 02/19/2023 Pneumococcal series for age 6-49 Aged Out No longer eligible b ased on patient's age to complete this topic Procedures Procedure Name Priority Date/Time Associated Diagnosis Comments HPV HIGH RISK Routine 10/25/2023 3:15 PM CDT ANTI HIV 1/2 Routine 02/19/2023 3:58 PM CDT Encounter for supervision of other normal in first trimester (HC) ANTI HCV Routine 02/19/2023 3:58 PM CDT Encounter for supervision of other normal in first trimester (HC) from Last 3 Months or Most Recently Relevant to Health Maintenance Results * HPV HIGH RISK (10/25/2023 3:15 PM CDT) TYPE 16 Negative Negative 10/31/2023 6:04 AM CDT [facility] TYPE 18 Negative Negative 10/31/2023 6:04 AM CDT [facility] OTHER HIGH RISK TYPES Negative Negative 10/31/2023 6:04 AM CDT [facility] Other (Cervical) 10/25/2023 3:15 PM CDT 10/29/2023 12:56 PM CDT Narrative [facility] - 10/31/2023 6:04 AM CDT HPV types 16, 18, 31, 33, 35, 39, 45, 51, 52, 56, 58, 59, 66 and 68 DNA were undetectable or below the pre-set threshold. Methodology: Allen Tabitha 4800 HPV Test Melia Mahan MD MICROBIOLOGY Fi nal Result Performing Organization Address [facility] de Phone Number [facility] [address] [place] [address], [place] * ANTI HCV (02/19/2023 3:58 PM CDT) HEPATITIS C ANTIBODY Non-Reacti ve Non-React svitlana 02/20/2023 3:49 PM CDT [facility] Comment:Please note, per www .CDC.gov: If a patient is known to be at high risk of HCV infection, or is symptomatic, and the physician's suspicion of HCV infection is high, HCV RNA testing is often employed and is of diagnostic value, even after an initial negative anti-HCV test result. Blood BLOOD SPECIMEN / Unknown Venipuncture / Unknown 02/19/2023 3:58 PM CDT 02/19/2023 4:00 PM CDT Dayami Hutchinson DO SEND OUTS Final Resu lt Performing Organization Address [facility] Co de Phone Number [facility] [address] [place] [address], [place] * ANTI HIV 1/2 (02/19/2023 3:58 PM CDT) HIV-1/HIV-2 SCREEN Non-Reacti ve Non-Reacti ve 02/20/2023 3:52 PM CDT [facility] Comment:HIV-1 p24 and HIV-1/ HIV-2 Ab Not Detected. Blood BLOOD SPECIMEN / Unknown Venipuncture / Unknown 02/19/2023 3:58 PM CDT 02/19/2023 4:00 PM CDT us Dayami Hutchinson DO SEND OUTS Final Resu lt [facility] [address] [place] [address], from Last 3 Months or Most Recently Relevant to Health Maintenance Insurance [facility] Care Teams Adjunct Faculty Relationship Specialty Start Date End Date Pcp, No . PCP - General 02/19/23
[2025-01-08 12:07] VITALS: BP 109/67; PULSE 118; RESP 18; TEMP 37.3; O2SAT 97
--- NOTE | 2025-01-08 12:19 | ED_ITS ---
HPI - General Adult General Date Seen: 01/08/25 Chief complaint: Abdominal Pain Stated complaint: abdominal pain Time Seen by Provider: 01/08/25 11:47 History of Present Illness HPI narrative: 29-year-old female presenting to the ER today with multiple concerns. She has been sick for about 3 days with right flank and back pain as well as dizziness, nausea, headache. She has also had some urinary frequency. She also has an earache. She notes that her is also ill with body aches and fatigue. History is obtained through an Anguillan-Kiswahili iPad pleased irrigationist from the patient She has been sick for quite a few weeks with bilateral ear pain more in the right ear than on the left. That is not really worse than normal lately. For the past several days she has had trouble with pain in her right flank that is been coming and going and actually got worse a couple of days ago. Along with that she has had headache, body aches, chills, nausea, dizziness, weakness. This sounds like she has not been vomiting. Bowel movements have been normal. Overnight last night the pain got worse and is now radiating around to her right upper quadrant. She has been having some urinary frequency for the past several days. No definite report of-4. is also been sick with body aches and chills. Per review of medical record... Was seen here in the ER in February 04 for ear pain and was diagnosed with left otitis externa. She also had URI symptoms. Viral trouble swab was negative during that visit. She was seen here in the ER in January 2024 for constipation with bloody stools, apparently related to pain meds that she had been taking for her wisdom tooth extraction. Related Data Previous Rx's ?Medication ?Instructions ?Recorded lidocaine 4 % topical cream 1 applic topical TID PRN p ain 02/19/24 #14.17 grams polyethylene glycol 3350 17 17 g PO .daily - tid PRN # 238 grams 02/19/24 gram/dose oral powder (Miralax) sodium phosphates 19 gram-7 118 ml GA BID PRN constipa tion 02/19/24 gram/197 mL enema (Fleet Enema #230 mL Extra) cefdinir 300 mg capsule 300 mg PO Q12H #14 caps 12/13 01/05 hydrocodone 5 mg-acetaminophen 325 1 tab PO Q4-6H PRN pain #10 tabs 01/08/25 mg tablet eihdqehl-ejkwmh-CO-thonzonm 3.3 1 applic Otic (ear-rig ht) QID #10 01/08/25 mg-3 mg-10 mg-0.5 mg/mL ear mL drops,susp (Cortisporin-TC) ondansetron 4 mg disintegrating 4 mg PO Q8H PRN nausea and 01/08/25 tablet vomiting #10 tabs Allergies Allergy/AdvReac Type Severity Reaction Status Date / Time No Known Drug Allergies Allergy Verified 10/25/23 14:07 [facility] Medical History No significant past medical history Surgical History (Updated 01/16/24 @ 21:09 by Jared Myles RN) No significant past surgical history Social History What is your current living situation?: I presently have a place to live Problems where you live: no known problems In the past 12 months, utilities in danger of being shut off: no In past 12 months, lack of transportation kept you from medical appts, meetings, work, or getting things needed for daily living: no In the past 12 mos, have been you worried that your food would run out before you had money to buy more?: never true In the past 12 mos, the food you bought just didn't last and you didn't have money to buy more?: never true Smoking Status: Never smoker Second hand tobacco smoke exposure: No How often do you have a drink containing alcohol: never AUDIT-C Alcohol total score: 0 Non-prescribed substance use: denies use How often does anyone, including family, friends and others, physically hurt you : never How often does anyone, including family, friends and others, insult or talk down to you: never How often does anyone, including family, friends and others, threaten you with harm: never How often does anyone, including family, friends and others, scream or curse at you: never Exam Narrative: Exam Narrative: Constitutional: Appears well-developed and well-nourished. Alert. Conversant. Non toxic. Her daughter is crawling around on her lap. She is doing her best to care for her daughter while she is sick. HENT: Head: Atraumatic. Right ear: Mastoid, pinna are normal. There is some dry skin and some purulent drainage in the canal suggestive for otitis externa. The TM does appear to be retracted but is not erythematous or bulging. No foreign body. Left ear: Mastoid, pinna, canal are normal. There is some clear fluid behind the TM. No erythema or bulging. No foreign body Nose: Nose normal. Mouth/Throat: Oral mucosa is clear and moist. no trismus. Pharynx normal. Tonsils symmetric. No tonsillar enlargement, erythema, or exudate. Eyes: Conjunctivae normal. EOM normal. Pupils equal, round, and reactive to light. No scleral icterus. Neck: Normal range of motion. Neck supple. No tracheal deviation present. Cardiovascular: Normal rate, regular rhythm. No gallop. No friction rub. No murmur heard. Symmetric radial artery pulses Pulmonary/Chest: Effort normal. No stridor. No respiratory distress. No wheezes. No rales. No rhonchi . No tenderness. Abdominal: Soft. Bowel sounds normal. No distension. No mass. Right CVA>> mild right upper quadrant and right lower quad tenderness. No rebound. No guarding. Musculoskeletal: RUE: Normal range of motion. No tenderness. No deformity LUE: Normal range of motion. No tenderness. No deformity RLE: Normal range of motion. No edema. No tenderness. No deformity LLE: Normal range of motion. No edema. No tenderness. No deformity Neurological: Alert and oriented to person, place, and time. Normal strength. CN II-VII intact. No sensory deficit. GCS eye subscore is 4. GCS verbal subscore is 5. GCS motor subscore is 6. Normal coordination Skin: Skin is warm and dry. No rash noted. No pallor. Normal capillary refill. Psychiatric: Normal mood. Normal affect. Const: Vital Signs, click to edit/add: Vital Signs - 24 hr 01/08/25 12:07 01/08/25 14:14 Temperature 99.1 F 98.9 F Pulse Rate [Pulse Oximeter] 118 H 94 Respiratory Rate 18 16 Blood Pressure [Ri ght Upper Arm] 109/67 100/59 L Pulse Oximetry 97 96 Oxygen Delivery Me thod Room Air Room Air Course Course ED Course: [id number]-[id number]. Says she is feeling much better after fluids, nausea meds, Toradol. Repeat abdominal exam still reveals some right CVA tenderness, but minimal to no tenderness in the anterior abdomen. No signs of peritoneal findings or guarding. At this point my clinical suspicion for cholecystitis and appendicitis are much lower and my clinical suspicion for probable right-sided pyelonephritis is higher. Will start IV phaucychffl-Fipsxgkk-poy possible pyelo. Reevaluation(s) Reevaluation #1: Recheck-antibiotics done. Vital signs improved her heart rate down from 118 down to about 90. Blood pressure remained normal throughout. She continues to say she feels better. Vital Signs Vital signs: Initial Vital Signs Temperature 99.1 F 01/08/25 12:07 Temperature Source Temporal Artery Scan 01/08/25 12:07 Pulse Rate 118 H 01/08/25 12:07 Respiratory Rate 18 01/08/25 12:07 Blood Pressure 109/67 01/08/25 12:07 Blood Pressure Mean 81 01/08/25 12:07 Blood Pressure Position Sitting 01/08/25 12:07 Pulse Oximetry 97 01/08/25 12:07 Oxygen Delivery Method Room Air 01/08/25 12:07 Vital Signs Temperature 99.1 F 01/08/25 12:07 Pulse Rate 118 H 01/08/25 12:07 Respiratory Rate 18 01/08/25 12:07 Blood Pressure 109/67 01/08/25 12:07 Pulse Oximetry 97 01/08/25 12:07 Oxygen Delivery Method Room Air 01/08/25 12:07 Temperature 98.9 F 01/08/25 14:14 Pulse Rate 94 01/08/25 14:14 Respiratory Rate 16 01/08/25 14:14 Blood Pressure 100/59 L 01/08/25 14:14 Pulse Oximetry 96 01/08/25 14:14 Oxygen Delivery Method Room Air 01/08/25 14:14 Medications Administered Medications: Generic Name Dose Route Start Last Admin Trade Name Freq PRN Reason Stop Dose Admin Ceftriaxone Sodium 1 gm/ 100 mls @ 200 mls/hr 01/08/25 13:47 01/08/25 13:57 Sodium Chloride IVPB 01/08/25 13:48 200 mls/hr ONCE ONE Administration Discontinued Medications Generic Name Dose Route Start Last Admin Trade Name Freq PRN Reason Stop Dose Admin Sodium Chloride 1,000 mls @ 1,000 mls/hr 01/08/25 12:45 01/08/25 14:01 0.9 % Sodium Chloride 1000 Ml IV 01/08/25 13:44 Infused .Q1H ISRA Infusion Ketorolac Tromethamine 15 mg 01/08/25 12:38 01/08/25 13:01 Ketorolac 15 Mg/Ml Inj IVP 01/08/25 12:39 15 mg ONCE ONE Administration Ondansetron HCl 4 mg 01/08/25 12:38 01/08/25 13:01 Ondansetron 2 Mg/Ml Inj IVP 01/08/25 12:39 4 mg ONCE ONE Administration Medical Decision Making MDM Narrative Medical decision making narrative: 29-year-old female presents to the ER today with multiple concerns. For most among them is that she has had malaise, fatigue, dizziness, nausea, body aches, and in particular right flank pain, for the past several days. has been sick with headache and similar body aches but does not have the flank pain. With the potential ill exposure we did check COVID/influenza PCR and those are negative. She is not coughing or having other pulmonary symptoms. At this point would hold off on chest x-ray. Differential for her flank pain includes kidney stone, pyelonephritis, musculoskeletal pain, shingles, among others. Although her pain at home his predominantly been in the right flank on my initial exam here she also had some mild right upper quadrant and right lower quadrant tenderness which also raise consideration for intra-abdominal pathology such as appendicitis, cholecystitis, choledocholithiasis, pancreatitis, diverticulitis, among others. Workup here in the ER is reassuring. White count is normal although differential shows 85% neutrophils. CMP is normal. Urine test is negative. Urinalysis does show 5-10 WBC/HPF and 1+ leukocyte esterase. Will treat with Rocephin 1 g IV for possible pyelonephritis although would almost expect her urinalysis to look worse in the setting of pyelo. Consider advanced imaging but at this point upon serial abdominal exams her anterior abdominal pain is almost completely resolved. At this point I have low clinical suspicion for appendicitis and very low suspicion for cholecystitis so I think the risk of radiation exposure would outweigh the benefit of CT imaging at this time. She has also had a long history of your pain, bilateral but right more than left lately.. The patient has an exam consistent with some dry skin on the right ear canal as well as a little bit of purulent drainage which I think represents otitis externa. Incidentally, She does have a little bit of nonpurulent fluid behind both eardrums without any erythema or bulging. Differential considered in this patient with otalgia included mastoiditis, meningitis, perforation, cerumen impaction, mass, dental abscess, or peritonsillar abscess, referred pain, cholesteatoma, otitis externa, etc. Tylenol or Ibuprofen for pain. Topical antibiotic drops for the externa are noted below. Return if increasing pain, fever, decrease in hearing or ear discharge. Follow-up with primary physician in 7-10 days, if symptoms persist and ENT consultation may be needed as outpatient. Discussed opiate precautions. Instructions provided in writing as well. Questions answered. Lab Data Labs: Lab Results 01/08/25 01/08/25 01/08/25 Range/Units 12:05 12:08 12:14 WBC (4.50-11.00) K/uL RBC (4.00-5.20) m/uL Hgb (12.0-16.0) gm/dL Hct (33.0-51.0) % MCV (80-100) fL MCH (26-34) pg MCHC (32-36) gm/dL RDW Coeff of Daniella (11.5-15.5) % Plt Count (140-440) K/uL Neut % (Auto) (42.0-72.0) % Lymph % (Auto) (20-44) % [place] % (Auto) (0.0-11.0) % Eos % (Auto) (0.0-7.0) % Baso % (Auto) (0.0-3.0) % Neut # (Auto) (1.7-7.0) K/uL Lymph # (Auto) (0.90-2.90) K/uL [place] # (Auto) (0.00-0.90) K/UL Eos # (Auto) (0.00-0.50) K/uL Baso # (Auto) (0.00-0.30) K/uL Abs Immat Gran (auto) (0.00-0.30) K/uL Imm/Tot Granulo (auto) % Sodium (135-149) mmol/L Potassium (3.6-5.1) mmol/L Chloride (96-114) mmol/L Carbon Dioxide (20-32) mmol/L Anion Gap (7-15) mEq/L BUN (5-24) mg/dL Creatinine (0.5-1.5) mg/dL Estimated GFR ml/min Glucose (60-115) mg/dL Calcium (8.4-10.6) mg/dL Total Bilirubin (0.1-1.5) mg/dL AST (12-35) U/L ALT (4-35) U/L Alkaline Phosphatase (40-150) U/L Total Protein (6.0-8.3) g/dL Albumin (3.3-5.0) g/dL Lipase (23-300) U/L Urine Color Yellow (Yellow) Urine Appearance Slightly Cloudy A (Clear) Urine pH 6.0 (5.0-8.5) Ur Specific [place] 1.020 (1.000-1.030) Urine Protein 1+ A (Negative) Urine Glucose (UA) Negative (Negative) Urine Ketones 3+ A (Negative) Urine Blood 2+ A (Negative) Urine Nitrite Negative (Negative) Urine Bilirubin Negative (Negative) Urine Urobilinogen 0.2 (0.2-1.0) Ur Leukocyte Esterase 1+ A (Negative) Urine RBC 0-2 (0-2) Urine WBC 5-10 A (0-5) Ur Squamous Epith Cells Few (None-Few) Other Sediment FEW YEAST (None) Urine Bacteria Many A (None) Urine HCG, Qual Negative (Negative) SARS-CoV-2 (PCR) Negative SARS-CoV-2 (Negative) Influenza Type A (PCR) Negative PCR FLU A (Negative) Influenza Type B (PCR) Negative PCR FLU B (Negative) RSV (PCR) Negative PCR RSV (Negative) 01/08/25 Range/Units 13:00 WBC 10.05 (4.50-11.00) K/uL RBC 4.82 (4.00-5.20) m/uL Hgb 15.5 (12.0-16.0) gm/dL Hct 45.2 (33.0-51.0) % MCV 94 (80-100) fL MCH 32 (26-34) pg MCHC 34 (32-36) gm/dL RDW Coeff of Daniella 11.6 (11.5-15.5) % Plt Count 292 (140-440) K/uL Neut % (Auto) 84.1 H (42.0-72.0) % Lymph % (Auto) 8.2 L (20-44) % [place] % (Auto) 6.9 (0.0-11.0) % Eos % (Auto) 0.2 (0.0-7.0) % Baso % (Auto) 0.2 (0.0-3.0) % Neut # (Auto) 8.50 H (1.7-7.0) K/uL Lymph # (Auto) 0.80 L (0.90-2.90) K/uL [place] # (Auto) 0.70 (0.00-0.90) K/UL Eos # (Auto) 0.02 (0.00-0.50) K/uL Baso # (Auto) 0.02 (0.00-0.30) K/uL Abs Immat Gran (auto) 0.04 (0.00-0.30) K/uL Imm/Tot Granulo (auto) 0.4 % Sodium 136 (135-149) mmol/L Potassium 3.7 (3.6-5.1) mmol/L Chloride 104 (96-114) mmol/L Carbon Dioxide 20 (20-32) mmol/L Anion Gap 12 (7-15) mEq/L BUN 11 (5-24) mg/dL Creatinine 0.7 (0.5-1.5) mg/dL Estimated GFR 120 ml/min Glucose 106 (60-115) mg/dL Calcium 9.5 (8.4-10.6) mg/dL Total Bilirubin 1.1 (0.1-1.5) mg/dL AST 23 (12-35) U/L ALT 16 (4-35) U/L Alkaline Phosphatase 132 (40-150) U/L Total Protein 8.7 H (6.0-8.3) g/dL Albumin 5.0 (3.3-5.0) g/dL Lipase 50 (23-300) U/L Urine Color (Yellow) Urine Appearance (Clear) Urine pH (5.0-8.5) Ur Specific [place] (1.000-1.030) Urine Protein (Negative) Urine Glucose (UA) (Negative) Urine Ketones (Negative) Urine Blood (Negative) Urine Nitrite (Negative) Urine Bilirubin (Negative) Urine Urobilinogen (0.2-1.0) Ur Leukocyte Esterase (Negative) Urine RBC (0-2) Urine WBC (0-5) Ur Squamous Epith Cells (None-Few) Other Sediment (None) Urine Bacteria (None) Urine HCG, Qual (Negative) SARS-CoV-2 (PCR) (Negative) Influenza Type A (PCR) (Negative) Influenza Type B (PCR) (Negative) RSV (PCR) (Negative) Discharge Plan Discharge Clinical Impression: Pyelonephritis, Otitis externa Patient Disposition: Home, Self-Care Condition: Stable Instructions: Swimmer's Ear (ED), Kidney Infection (ED) Additional Instructions: Please come back to the ER right away if you have worsening pain in your right side, worsening fever, weakness, uncontrolled vomiting, or any concerns. Please start on the antibiotic pills at home tonight and take them twice daily for 7 days. It will usually take 2-3 days of antibiotics for your fever, pain symptoms of your kidney infection to start to get better. To treat your pain at home you can use Tylenol, or ibuprofen. Use the prescription pain killer ([place]) if needed to treat pain uncontrolled by other medications. Use the prescription nausea medicine (Zofran) as needed. Drink plenty of fluids and stay hydrated. Treat your ear infection with the drops. Please follow-up with your regular doctor for recheck within 1 week Por favor, regrese a la krystle de emergencias de inmediato si tiene un dolor creciente en rogers lado derecho, fiebre creciente, debilidad, v?mitos incontrolables o cualquier preocupaci?n. Por favor, comience a delia los antibi?ticos esta noche en casa y t?melos dos ve deysi al d?a devyn 7 d?as. Por lo general, delia? de 2 a 3 d?as de antibi?ticos para que rogers fiebre y los s?ntomas de dolor de rogers infecci?n de ri??n comiencen a mejorar. Para tratar rogers dolor en casa, puede usar Tylenol o ibuprofeno. Use el analg?sico recetado ([place]) si es necesario para tratar el dolor que no se controla con otros medicamentos. Utilice el medicamento recetado para las n?useas (Zofran) seg?n sea necesario. Zulema muchos l?quidos y mant?ngase hidratado.Trate rogers infecci?n de o?do con las gotas. Por favor, brandan un seguimiento con rogers m?dico regular para un chequeo dentro de 1 semana. Prescriptions: New hydrocodone-acetaminophen 5-325 mg tablet 1 tab PO Q4-6H PRN (Reason: pain) Qty: 10 0RF Cortisporin-TC 3.3-3-10-0.5 mg/mL drops,suspension 1 applic Otic (ear-right) QID Qty: 10 0RF Rx Instructions: apply to (cotton) wick; replace wick every 24 hours cefdinir 300 mg capsule 300 mg PO Q12H Qty: 14 0RF ondansetron 4 mg tablet,disintegrating 4 mg PO Q8H PRN (Reason: nausea and vomiting) Qty: 10 0RF No Action polyethylene glycol 3350 [Miralax] 17 gram/dose powder 17 g PO .daily - tid PRNQty: 238 0RF lidocaine 4 % cream 1 applic topical TID PRN (Reason: pain) Qty: 14.17 0RF Fleet Enema Extra 19-7 gram/197 mL enema 118 ml GA BID PRN (Reason: constipation) Qty: 230 0RF Follow Up/Referrals: Meera Candelario DO [Primary Care Provider, Family Practice] Stand Alone Forms: [facility] Info Instructions
[2025-01-08 12:22] LABS: Appearance Urine Slightly Cloudy (Clear)
[2025-01-08 12:54] LABS: Ur HCG Qualitative* Negative (Negative)
[2025-01-08 12:59] LABS: PCR FLU A Negative PCR FLU A (Negative); PCR FLU B Negative PCR FLU B (Negative); PCR RSV Negative PCR RSV (Negative); SARS PCR* Negative SARS-CoV-2 (Negative)
[2025-01-08 13:01] LABS: Other Sediment Urine FEW YEAST
[2025-01-08] MEDS: ONDANSETRON 2 MG/ML inj 4 MG IVP (13:01)
[2025-01-08 13:12] LABS: Hematocrit 45.2 % (33.0-51.0); Hemoglobin* 15.5 gm/dL (12.0-16.0); Immature Granulocytes Abs Auto 0.04 K/uL (0.00-0.30); Immature Granulocytes Pct Auto 0.4 %; Mean Corpuscular HGB Conc 34 gm/dL (32-36); Mean Corpuscular Hemoglobin 32 pg (26-34); Mean Corpuscular Volume 94 fL (80-100); RDW Coefficient of Variation % 11.6 % (11.5-15.5); Red Blood Count 4.82 m/uL (4.00-5.20); White Blood Count* 10.05 K/uL (4.50-11.00)
[2025-01-08 13:24] LABS: Lymphocytes Absolute Auto 0.80 K/uL (0.90-2.90); Slide Review Reflex No
[2025-01-08 13:30] LABS: Albumin* 5.0 g/dL (3.3-5.0); Chloride* 104 mmol/L (96-114); Potassium* 3.7 mmol/L (3.6-5.1); Sodium* 136 mmol/L (135-149)
[2025-01-08 13:33] LABS: Alanine Aminotransferase* 16 U/L (4-35); Alkaline Phosphatase* 132 U/L (40-150); Anion Gap 12 mEq/L (7-15); Aspartate Amino Transferase* 23 U/L (12-35); Bilirubin Total* 1.1 mg/dL (0.1-1.5); Blood Urea Nitrogen* 11 mg/dL (5-24); Carbon Dioxide* 20 mmol/L (20-32); Creatinine* 0.7 mg/dL (0.5-1.5); Estimated Glomerular Filt Rate 120 ml/min; Total Protein* 8.7 g/dL (6.0-8.3)
[2025-01-08 13:34] LABS: Calcium* 9.5 mg/dL (8.4-10.6); Glucose* 106 mg/dL (60-115)
[2025-01-08] MEDS: cefTRIAXone 1 GM in 0.9 % SODIUM CHLORIDE Mini-bag 100 ML IVPB (13:57)
[2025-01-08 14:14] VITALS: BP 100/59; PULSE 94; RESP 16; TEMP 37.2; O2SAT 96
== END 2025-01-08 15:00 | disposition home or self-care (01) ==
PROVIDERS: Emergency Provider Emergency Medicine; PCP Family Medicine
DX: N10 Acute pyelonephritis (principal); H60.93 Unspecified otitis externa, bilateral
CPT/HCPCS: 36415; 80053; 81001; 81025; 83690; 85025; 87086; 87631; 96365; 96375; 99283; 99284; J0696; J1885; J2405; J7030

== ENCOUNTER 2025-03-13 10:38 | Emergency (ER) | payer MEDICAID, SELFPAY ==
--- OUTSIDE RECORDS SUMMARY | 2025-03-13 10:40 | XMS_ITS | Clinical Summary ---
Author Organization [facility] Address [address] [place] [id number] Care Team Providers Care Sports Physiologist Name Role Phone Pcp, No Primary Care [...] of blood transfusion s as patient is Caodaism 08/27/2023 Overview (02/20/2025): Diagnosis Code replaced due to regulatory update 02/19/2023 Overview (08/27/2023): Estimated Date of Delivery: 09/19/23 Patient's last menstrual period was 12/13/2022 (exact date). JEHOVA[facility] WITNESS does NOT want ANY BLOOD PRODUCTS. Had TOLAC visit with [facility] 07/03/23. Given consent then but did not sign and was to review at home and bring to . Brought back 08/06/23 and faxed to [facility]. She wants to schedule c/s at 39wks and TOLAC if goes into labor prior to this. 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 Respiratory Rate - - Oxygen Saturation 97% [...] of 3 - 19+ 3-dose series) 2014 HPV series for age 9-45 (1 - 3-dose SCDM series) 2022 BMI (ht and wt on same day) for age 18+ 02/20/2024 02/19/2023 Depression screening for age 12+ 03/26/2024 03/26/2023 Influenza Vaccine (#1) 2025 04/23/2023 Pap test for age 21-65 10/24/2026 , 10/25/2023 Tetanus booster 06/25/2033 06/25/2023 RSV vaccine for adults or (1 - 1-dose 75+ series) 2070 HIV for age 15-65 Completed 02/19/2023 Hepatitis [...] 16 Negative Negative 10/31/2023 6:04 AM CDT [facility] TYPE 18 Negative Negative 10/31/2023 6:04 AM CDT [facility] OTHER HIGH RISK TYPES Negative Negative 10/31/2023 6:04 AM CDT [facility] Other (Cervical) 10/25/2023 3:15 PM CDT 10/29/2023 12:56 PM CDT Narrative [facility] - 10/31/2023 6:04 AM CDT HPV types 16, 18, 31, 33, 35, 39, 45, 51, 52, 56, 58, 59, 66 and 68 DNA were undetectable or below the pre-set threshold. Methodology: Allen Tabitha 4800 HPV Test us Melia Mahan MD MICROBIOLOGY Fi nal Result Performing Organization Address [facility]/ZIP Co de Phone Number [facility] [address] [place] [id number], [place] * ANTI HCV (02/19/2023 3:58 PM CDT) HEPATITIS C ANTIBODY Non-Reacti ve Non-React svitlana 02/20/2023 3:49 PM CDT [facility] Comment:Please note, per www .CDC.gov: If [...] OUTS Final Resu lt Performing Organization Address City/[facility]/ZIP Co de Phone Number [facility] [address] [place] [id number], [place] * ANTI HIV 1/2 (02/19/2023 3:58 PM CDT) HIV-1/HIV-2 SCREEN Non-Reacti ve Non-Reacti ve 02/20/2023 3:52 PM CDT [facility] Comment:HIV-1 p24 and HIV-1/ HIV-2 Ab Not Detected. Blood BLOOD SPECIMEN / Unknown Venipuncture / Unknown 02/19/2023 3:58 PM CDT 02/19/2023 4:00 PM CDT us Dayami Hutchinson DO SEND OUTS Final Resu lt [facility] [address] [place] [address], from Last 3 Months or Most Recently Relevant to Health Maintenance Insurance [facility] Care Teams Sports Physiologist Relationship Specialty Start Date End Date Pcp, No . PCP - General 02/19/23
[2025-03-13 10:57] VITALS: BP 112/73; PULSE 92; RESP 20; TEMP 36.6; O2SAT 98; BMI 30.2
--- NOTE | 2025-03-13 11:28 | ED_ITS ---
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 She states the past 6 months she has been having allergy like symptoms and symptoms usually get better after she takes an allergy medication. Her symptoms would include eye itchiness, tearing of her eyes, a cough, wheezing whenever she got around dust. She will take allergy medication and she states she would feel better. Started 2 weeks ago after she mixed chlorine and ammonia while at work she states nausea symptoms persist whether she takes the anti histamine are not. She states she can a sore throat, short of breath whenever she gets around dust. She states it has been this bad in the past about 4 years ago and she was given an albuterol inhaler which she states helped at that time. She no longer is using an inhaler. When she is not around any dust she is asymptomatic. She states she gets no associated chest pain. Denies any abdominal pain. Does states she has an intermittent right earache. Was seen for this 3 months ago and given an antibiotic since then the pain seems to come and go. Is currently not having any ear pain. Also states when she is around dust her eyes were started tearing up and become itchy. Has not had any fevers, chills, weakness, numbness, lightheadedness, dizziness. No other concerns noted. Related Data Previous Rx's ?Medication ?Instructions ?Recorded albuterol sulfate 90 mcg/actuation 2 puff inhalation Q ID PRN 03/13/25 aerosol inhaler shortness of breath or wheez ing #8.5 grams cetirizine 10 mg tablet 10 mg PO DAILY PRN allergy 1 symptoms #20 tabs prednisone 20 mg tablet 40 mg (2 x 20 mg) PO DAILY # 10 tabs 03/13/25 Allergies Allergy/AdvReac Type Severity Reaction Status Date / Time No Known Drug Allergies Allergy Verified 03/13/25 10:52 Review of Systems Status of ROS: Reports: 10 or more systems reviewed and unremarkable except as noted in History and below [facility] Medical History No significant past medical history Surgical History No significant past surgical history Social History What is your current living situation?: I presently have a place to live Problems where you live: no known problems In the past 12 months, utilities in danger of being shut off: no In past 12 months, lack of transportation kept you from medical appts, meetings, work, or getting things needed for daily living: no In the past 12 mos, have been you worried that your food would run out before you had money to buy more?: never true In the past 12 mos, the food you bought just didn't last and you didn't have money to buy more?: never true Smoking Status: Never smoker Second hand tobacco smoke exposure: No How often do you have a drink containing alcohol: never AUDIT-C Alcohol total score: 0 Non-prescribed substance use: denies use How often does anyone, including family, friends and others, physically hurt you : never How often does anyone, including family, friends and others, insult or talk down to you: never How often does anyone, including family, friends and others, threaten you with harm: never How often does anyone, including family, friends and others, scream or curse at you: never Exam Narrative: Exam Narrative: Const: Well-nourished, Well-developed, in no distress Eyes: PERRL, no conjunctival injection, and symmetrical lids HENT: Atraumatic external nose and ears. Moist mucous membranes. Uvula midline, no tonsillar exudate or swelling. Normal appearing bilateral tympanic membranes Neck: Symmetric, trachea midline, No thyromegaly. CVS: RRR, No murmurs or gallops. Peripheral pulses 2+ and equal in all extremities RESP: Unlabored respiratory effort. Clear to auscultation bilaterally. GI: Nontender/Nondistended, No rebound or guarding. MSK:Extremities w/o deformity, Normal Active ROM Skin: Warm, Dry. No rashes or lesions. Neuro: Normal Muscle tone, No focal neurological deficits. Psych: Awake, Alert, & Oriented x3. Appropriate mood and affect. Const: Vital Signs, click to edit/add: Vital Signs - 24 hr 03/13/25 10:57 03/13/25 11:52 Temperature 97.8 F Pulse Rate [Pulse Oximeter] 92 84 Respiratory Rate 20 16 Blood Pressure [Ri ght Upper Arm] 112/73 113/63 Pulse Oximetry 98 96 Oxygen Delivery Me thod Room Air Room Air Course Vital Signs Vital signs: Initial Vital Signs Temperature 97.8 F 03/13/25 10:57 Temperature Source Temporal Artery Scan 03/13/25 10:57 Pulse Rate 92 03/13/25 10:57 Respiratory Rate 20 03/13/25 10:57 Blood Pressure 112/73 03/13/25 10:57 Blood Pressure Mean 86 03/13/25 10:57 Pulse Oximetry 98 03/13/25 10:57 Oxygen Delivery Method Room Air 03/13/25 10:57 Vital Signs Temperature 97.8 F 03/13/25 10:57 Pulse Rate 92 03/13/25 10:57 Respiratory Rate 20 03/13/25 10:57 Blood Pressure 112/73 03/13/25 10:57 Pulse Oximetry 98 03/13/25 10:57 Oxygen Delivery Method Room Air 03/13/25 10:57 Temperature 97.8 F 03/13/25 10:57 Pulse Rate 84 03/13/25 11:52 Respiratory Rate 16 03/13/25 11:52 Blood Pressure 113/63 03/13/25 11:52 Pulse Oximetry 96 03/13/25 11:52 Oxygen Delivery Method Room Air 03/13/25 11:52 Medical Decision Making [facility] Narrative Medical decision making narrative: Patient is a 29-year-old female presenting to the Emergency Department for multiple complaints. Her main complaint seemed to be allergic in nature. Symptoms seem to have gotten worse after exposure to the chlorine gas. This d oes happen a few weeks ago but do believe it is possible that it exacerbated her allergy symptoms and things are not getting better. considering the symptoms are similar to the same symptoms she has been having over the past 6 months just more persistent this seems unlikely to be cardiac related, pneumonia, pneumothorax, PE. Again symptoms all come back when she is around dust. Her eye symptoms also sound like an allergic conjunctivitis. She is well outside the needed observational window for chlorine but it may have been exacerbated her symptoms and thus steroids can help with this along with albuterol. Especially concerned she states albuterol has helped in the past. Also give her prescription for an antihistamine. For her ear pain since the pain is intermittent and currently not there I do believe she should follow-up with ENT for this. Patient is not showing signs of peritonsillar abscess, Marvel angina, retropharyngeal abscess,Lemierre disease or any other concerning oral pharynx or deep neck space abscesses. Imaging is not necessary for her sore throat. Viral swabs were ordered. She is agreeable to this plan. Lab Data Labs: Lab Results 03/13/25 Range/Units 10:50 SARS-CoV-2 (PCR) Negative SARS-CoV-2 (Negative) Influenza Type A (PCR) Negative PCR FLU A (Negative) Influenza Type B (PCR) Negative PCR FLU B (Negative) RSV (PCR) Negative PCR RSV (Negative) Discharge Plan Discharge Clinical Impression: Allergic reaction Patient Disposition: Home, Self-Care Condition: Stable Instructions: General Allergic Reaction (ED) Additional Instructions: I do believe all of your symptoms are related to seasonal allergies that was exacerbated by the chemicals that were mixed . Will give you a prescription for steroids and an albuterol inhaler. Will also give you prescription for an antihistamine. Follow-up with ENT for your intermittent right ear pain. You can call ENT at [phone] Prescriptions: New cetirizine 10 mg tablet 10 mg PO DAILY PRN (Reason: allergy symptoms) Qty: 20 0RF albuterol sulfate 90 mcg/actuation HFA aerosol inhaler 2 puff inhalation QID PRN (Reason: shortness of breath or wheezing) Qty: 8.5 0RF prednisone 20 mg tablet 40 mg PO DAILY Qty: 10 0RF Follow Up/Referrals: Meera Candelario DO [Primary Care Provider, Family Practice] Stand Alone Forms: [facility] Info Instructions
--- OUTSIDE RECORDS SUMMARY | 2025-03-13 11:43 | XMS_ITS | Data Portability ---
Author Organization [facility] OFF[facility] Address [address] [place] [phone] Assessment No assessment recorded. Plan of Treatment Reminders Order Date Submit Date Provider Last Modified By Organization Details Last Modified Time Details Appointments None record ed. Lab None record ed. Referral None record ed. Procedures None record ed. Surgeries None record ed. Imaging None record ed. Medication Orders neomyc in-keagan ymyxin -hydro thaddeus 3.5 mg-10, 000 unit/m L-1 % ear drops, susp 025 02/18/20 25 [facility] [place], [address] [place], [address], 15:02:53 Patient TargetsNo targets recorded. Patient InstructionsNo instructions recorded. Reason for Referral None Reported. Procedures Surgical History Date Name Laterality Status Provider Name and Address Organization Details Recorded Time section completed Zuleyma Evans MD [address] [place], [address], [facility] Doctor[facility] 02/17/2025 16:16:06 Imaging Results None recorded. Procedure Notes None recorded. Medical Equipment None Reported. Medications Name Sig Start Date Stop Date Status Note LastModified by Organization Details LastModified Time hydrocodone 5 mg-acetamin ophen 325 mg tablet TAKE 1 TABLET BY MOUTH EVERY 4 TO 6 HOURS NEEDED FOR PAIN active Not Available Not Available No t Available neomycin-po lymyxin-dex ameth 3.5 mg/mL-10,00 0 unit/mL-0.1 % eye drops INSTILL 4 DROPS IN RIGHT EAR THREE TIMES DAILY FOR 7 DAYS (EYE DROP BEING USED IN THE EAR) active Not Available Not Available No t Available polyethylen e glycol 3350 17 gram/dose oral powder 17 GRAMS ORALLY DAILY TO THREE TIMES DAILY active Not Available Not Available No t Available Cortisporin -TC 3.3 mg-3 mg-10 mg-0.5 mg/mL ear drops,suspe nsion APPLY EXTERNALL Y INTO THE RIGHT EAR FOUR TIMES DAILY. APPLY TO COTTON WICK AND REPLACE WICK EVERY 24 HOURS 02/17 completed Not Available Not Available Not Available ondansetron 4 mg disintegrat ing tablet DISSOLVE 1 TABLET ON THE TONGUE EVERY 8 HOURS NEEDED FOR NAUSEA OR VOMITING active Not Available Not Available No t Available cefdinir 300 mg capsule TAKE 1 CAPSULE BY MOUTH EVERY 12 HOURS 02/17 completed Not Available Not Available Not Available neomycin-po lymyxin-hyd rocort 3.5 mg-10,000 unit/mL-1 % ear drops,susp INSTILL 4 DROPS INTO AFFECTED EAR(S) BY OTIC ROUTE 3 TIMES PER DAY 2024 active Not Available Not Available Not Avai lable AsperFlex (lidocaine) 4 % topical cream APPLY TOPICALLY TO THE AFFECTED AREA THREE TIMES DAILY NEEDED FOR PAIN active Not Available Not Available No t Available Vitals Date Recorded Body weight Heart rate Heart rate Oxygen saturation Oxygen saturation in Arterial blood by Pulse oximetry Systolic And Diastolic Provider Name and Address Organization Details Last Updated DateTime 5 88840.2 8 g 86 /min 86 /min 96 % 96 % 115/68 mm[Hg] Zuleyma Evans MD [facility] [place], [address] [place] [address] 5 15:09:00 Social History None recorded. Functional Status None recorded. Mental Status None recorded. Family History Nothing Reported. Medical History No medical history recorded. Gynecological HistoryNo gynecological history recorded. Obstetrics History GPAL:G 0 P 0 0 0 0 Immunizations Vaccine Type Date Status Note Provider Nam e and Address Organization Details Recorded Time Influenza, split virus, quadrivalent, PF 04/23/2023 completed Not Available [facility] 03:29:53 Tdap 06/25/2023 completed Not Available [facility] 02/18/2025 03:29:53 Past Encounters Encounter ID Performer Location Encounter Start Date Encounter Closed Date Diagnosis/Indication Diagnosis SNOMED-CT Code Diagnosis ICD10 Code Diagnosis IMO Codes Diagnosis Note [id number] Zuleyma Evans MD [facility] [address] [place] [id number] 02/17/2025 14:37:06 02/17/2025 15:14:30 Otitis externa 1447284 H60.8X1 [id number] - recurrent, will treat and discussed return precaution s that would warrant ENT visit Health Concerns Section Related Observation LastModified by Organization Detai ls LastModified Time None Recorded Concern Status LastModified by Organization Details LastModified Time None Recorded Advance Directives Directive None Recorded Payers Insurance Date Sequence Insurance Name Policy Number Policy Lemus Covered Member ID Lemus Member ID Guarantor Name 02/17/2025 SLIDING FEE SCHEDULE - DISCOUNT Letitia [place] Daniel Notes Date Note Type Note Provider Name and Address Organization Details Recorded Time 02/17/2025 text/html Letitia is in for ER f/u (seen for UTI/early pyelo and R otitis externa).History of recurrent OM, primarily has pain noted inside her R ear.Pain better with antibiotics usually.No history of trauma.No swimming. Symptoms from UTI have resolved, feeling good. No daily medications.s/p two (last one September 2023).Using Nexplanon for contraception, no future pregnancies desired. Discussed options. Zuleyma Evans MD [address] [place] [address], [phone], [facility] 02/17/2025 16:16:24 OBGyn Episode No OBEpisode recorded.
--- OUTSIDE RECORDS SUMMARY | 2025-03-13 11:43 | XMS_ITS | Continuity of Care Document ---
Author Organization [facility] Address [address] [place] [address] Assessment No assessment recorded. Plan of Treatment [...] % ear drops, susp 025 02/18/20 25 [facility], [address] [place], [address], 15:02:53 Patient TargetsNo targets recorded. Patient InstructionsNo instructions recorded. Reason for Referral None Reported. Procedures Surgical History Date Name Laterality Status Provider Name and Address Organization Details Recorded Time section completed Zuleyma Evans MD [address] [place], [address], [facility] 02/17/2025 16:16:06 Imaging Results None recorded. Procedure [...] Address Organization Details Last Updated DateTime 5 25161.2 8 g 86 /min 86 /min 96 % 96 % 115/68 mm[Hg] Zuleyma Evans MD [facility] [place], [address] [place] [address] 5 15:09:00 Social History None recorded. Functional Status None recorded. Mental Status None recorded. Family History Nothing Reported. Medical History No medical history recorded. Gynecological HistoryNo gynecological history recorded. Obstetrics History GPAL:G 0 P 0 0 0 0 Immunizations Vaccine Type Date Status Note Provider Nam e and Address Organization Details Recorded Time Influenza, split virus, quadrivalent, PF 04/23/2023 completed Not Available [facility] 03:29:53 Tdap 06/25/2023 completed Not Available [facility] 02/18/2025 03:29:53 Past Encounters Encounter ID Performer Location Encounter Start Date Encounter Closed Date Diagnosis/Indication Diagnosis SNOMED-CT Code Diagnosis ICD10 Code Diagnosis IMO Codes Diagnosis Note [id number] Zuleyma Evans MD [facility] [address] [place] [phone] 02/17/2025 14:37:06 02/17/2025 15:14:30 Otitis externa 3418900 H60.8X1 [id number] - recurrent, will treat and discussed return precaution s that would warrant ENT visit Health Concerns Section Related Observation LastModified by Organization Detai ls LastModified Time None Recorded Concern Status LastModified by Organization Details LastModified Time None Recorded Payers Encounter Date Sequence Insurance Name Policy Number Policy Lemus Covered Member ID Lemus Member ID Guarantor Name 02/17/2025 SLIDING FEE SCHEDULE - DISCOUNT Lettiia [place] Daniel Notes Date Note Type Note [...] pregnancies desired. Discussed options. Zuleyma Evans MD [address] [place], [address], [facility] 02/17/2025 16:16:24 OBGyn Episode No OBEpisode recorded.
[2025-03-13 11:47] LABS: PCR FLU A Negative PCR FLU A (Negative); PCR FLU B Negative PCR FLU B (Negative); PCR RSV Negative PCR RSV (Negative); SARS PCR* Negative SARS-CoV-2 (Negative)
[2025-03-13 11:52] VITALS: BP 113/63; PULSE 84; RESP 16; O2SAT 96
== END 2025-03-13 11:53 | disposition home or self-care (01) ==
PROVIDERS: Emergency Provider Student in an Organized Health Care Education/Training Program; PCP Family Medicine
DX: T78.49XA Other allergy, initial encounter (principal); T59.4X1A Toxic effect of chlorine gas, accidental (unintentional), initial encounter; R06.02 Shortness of breath; R05.9 Cough, unspecified
CPT/HCPCS: 87631; 99282; 99283; 99284